=== PATIENT | male | born 1990 | race Caucasian/White ===

== ENCOUNTER 2024-11-29 14:58 | Emergency (ER) | payer MEDICAID, BC ==
[~2024-11-29] VITALS: Ht 175.3 cm; Wt 64.0 kg
[2024-11-29] MEDS ORDERED: IPRATROPIUM NEB FS 0.5 MG/2.5 ML AMPUL.NEB ONE (15:40)
[2024-11-29] MEDS ORDERED: ALBUTEROL FS 2.5 MG/3 ML VIAL.NEB ONE (15:40)
[2024-11-29] MEDS: IV NS 0.9% 1,000 ML BAG IV ONE (15:42)
[2024-11-29 15:44] VITALS: O2SAT 100
[2024-11-29] MEDS: IPRATROPIUM NEB FS 0.5 MG/2.5 ML AMPUL.NEB NEB ONE (15:44)
[2024-11-29] MEDS: ALBUTEROL FS 2.5 MG/3 ML VIAL.NEB CONTNEB ONE (15:44)
[2024-11-29] MEDS ORDERED: CEFTRIAXONE 1GM BAG (ER ONLY) 50 ML IV ONE (15:47)
[2024-11-29] MEDS: CEFTRIAXONE 1GM BAG (ER ONLY) 1 GM/50 ML PIGGYBACK IV ONE (15:50)
[2024-11-29 15:57] LABS: BASOPHILS % (AUTO) 0.1 % (0.0-2.0); EOSINOPHILS % (AUTO) 0.3 % (0.0-6.0); HEMOGLOBIN 14.7 g/dL (13.5-17.5)
[2024-11-29 15:59] VITALS: O2SAT 100
[2024-11-29 16:00] VITALS: O2SAT 100
[2024-11-29 16:08] LABS: HEMATOCRIT 42 % (39-51); LYMPHOCYTES # (AUTO) 1.3 K/uL (0.8-4.8); LYMPHOCYTES % (AUTO) 13.5 % (20.0-44.0); MEAN CORPUSCULAR HEMOGLOBIN 30 PG (26.0-33.0); MEAN CORPUSCULAR HGB CONC 35 g/dl (31.0-36.0); MEAN CORPUSCULAR VOLUME 86 fL (80-96); MONOCYTES % (AUTO) 11.1 % (2.0-12.0); PLATELET COUNT (AUTO) 148 K/uL (150-450); RED BLOOD CELL COUNT(AUTO) 4.87 MIL/uL (4.5-6.0); RED CELL DISTRIBUTION WIDTH 12.7 % (11.5-15.0); WHITE BLOOD COUNT (AUTO) 9.4 K/uL (4.3-11.0)
[2024-11-29 16:11] VITALS: O2SAT 100
[2024-11-29 16:12] LABS: CALCIUM, SERUM 8.5 mg/dL (8.5-10.1); CREATININE 0.8 mg/dL (0.6-1.3); POTASSIUM 3.9 mmol/L (3.5-5.1)
[2024-11-29 16:25] LABS: LACTIC ACID 1.7 mmol/L (0.4-2.0)
[2024-11-29 17:29] LABS: APPEARANCE,URINE CLEAR (CLEAR); BILIRUBIN,URINE NEGATIVE (NEGATIVE); BLOOD, URINE NEGATIVE Ery/uL (NEGATIVE); COLOR,URINE YELLOW (YELLOW); KETONES,URINE 2+ mg/dL (NEGATIVE); LEUKOCYTE ESTERASE ,URINE NEGATIVE (NEGATIVE); NITRITE, URINE NEGATIVE (NEGATIVE); PROTEIN,URINE 1+ mg/dl (NEGATIVE); UGLUCOSE NEGATIVE (NEGATIVE); UROBILINOGEN,URINE 0.2 EU/dL (0.2)
[2024-11-29 17:37] LABS: ADD URINE CULTURE NO; BACTERIA,URINE Rare /HPF (None Seen); RBC,URINE NONE SEEN /HPF (0-2); SQUAMOUS EPITHELIAL CELL,UR Rare /HPF (None Seen); WBC,URINE 0-2 /HPF (0-3)
[2024-11-29 17:38] LABS: MUCUS,URINE Moderate /LPF (None Seen)
[2024-11-29] MEDS ORDERED: PRED50TA PO (17:59)
[2024-11-29] MEDS ORDERED: ALBU0.633 NEB (17:59)
[2024-11-29] MEDS ORDERED: AMOX-430 PO (17:59)
[2024-11-29 18:17] VITALS: BP 122/79; TEMP 98; O2SAT 100
== END 2024-11-29 18:17 | disposition home or self-care (01) ==
LOC: ER 15:08
DX: J12.9 Viral pneumonia, unspecified (principal); J10.08 Influenza due to other identified influenza virus with other specified pneumonia; R50.9 Fever, unspecified; B97.89 Other viral agents as the cause of diseases classified elsewhere; E86.0 Dehydration
CPT/HCPCS: 99285; 96365; 71045; 93005; 87804 ×2; 84145; 85025; 80048; 87040 ×2; 83605; 81001; 36415; 94640 ×2; J0696